=== PATIENT | male | born 1965 | race Caucasian/White ===

== ENCOUNTER 2020-09-27 12:37 | Inpatient (IN) | payer MEDICAID ==
[~2020-09-27] VITALS: Ht 170.2 cm; Wt 65.3 kg
[2020-09-27 13:18] LABS: BASOPHILS % (AUTO) 0.1 % (0-1); EOSINOPHILS % (AUTO) 0.1 % (0-6); HEMATOCRIT 37.3 % (42.0-52.0); HEMOGLOBIN 12.9 g/dl (14.0-17.9); LYMPHOCYTES # (AUTO) 0.5 X10'3 (1.1-4.8); LYMPHOCYTES % (AUTO) 4.3 % (21-51); MEAN CORPUSCULAR HEMOGLOBIN 30.1 PG (27.0-31.0); MEAN CORPUSCULAR HGB CONC 34.5 g/dL (33.0-36.5); MEAN CORPUSCULAR VOLUME 87.3 FL (78-98); MEAN PLATELET VOLUME 7.7 FL (7.4-10.4); MONOCYTES # (AUTO) 0.1 X10'3 (0-0.9); MONOCYTES % (AUTO) 0.7 % (2-12); NEUTROPHILS # (AUTO) 10.6 X10'3 (1.8-7.7); NEUTROPHILS % (AUTO) 94.8 % (42-75); PLATELET COUNT 262 X10'3 (140-440); RED BLOOD COUNT 4.28 X10'6 (4.70-6.10); RED CELL DISTRIBUTION WIDTH 14.6 % (11.5-14.5); WHITE BLOOD COUNT 11.1 X10'3 (4.5-11.0)
[2020-09-27 13:24] LABS: ALANINE AMINOTRANSFERASE 16 U/L (12-78); ALBUMIN/GLOBULIN RATIO 0.4 (1.1-1.5); ALKALINE PHOSPHATASE 107 IU/L (46-116); ANION GAP 11 (8-16); ASPARTATE AMINO TRANSFERASE 21 U/L (10-37); BILIRUBIN,TOTAL 1.5 MG/DL (0.1-1.0); BLOOD UREA NITROGEN 18 MG/DL (7-18); BUN/CREATININE RATIO 17.5 (5.4-32.0); CALCIUM 8.6 MG/DL (8.5-10.1); CHLORIDE 99 MMOL/L (99-107); CREATININE 1.03 MG/DL (0.60-1.10); GLUCOSE 85 MG/DL (70-104); POTASSIUM 3.5 MMOL/L (3.5-5.1); SODIUM 136 MMOL/L (135-145); TOTAL CARBON DIOXIDE 26.3 MMOL/L (24-32); TOTAL PROTEIN 6.6 G/DL (6.4-8.2); eGFR 74 ML/MIN
[2020-09-27] MEDS ORDERED: NO HOME MEDS (13:46)
--- NOTE | 2020-09-27 14:21 | NUR ---
SPOKE WITH DR. FARRAR REGARDING PT CASE, RECEIVED VO TO ORDER BLOOD CULTURES, CRP, D-DIMER AND RAPID COVID SWAB.
[2020-09-27] MEDS ORDERED: normal saline 1000ML IV soln IV ONE (14:25)
[2020-09-27] MEDS ORDERED: levoFLOXACIN-Levaquin 750MG/D5 150 ML IV ONE (14:25)
[2020-09-27] MEDS ORDERED: CefTRIAXone 2gm/D5W 50ml BAG 50 ML IV ONE (14:25)
[2020-09-27 14:31] LABS: TOTAL CELLS COUNTED 100
[2020-09-27 14:33] LABS: PLATELET ESTIMATE NORMAL
[2020-09-27 14:34] LABS: D-DIMER 2.05 MG/L FEU (0-0.50)
[2020-09-27 14:55] LABS: C-REACTIVE PROTEIN 31.15 MG/DL (0.0-0.5)
[2020-09-27] MEDS ORDERED: normal saline 1000ML IV soln IVB ONE (16:15)
[2020-09-27] MEDS ORDERED: albuterol 2.5 MG/3 ML nebule NEB ONE (16:40)
[2020-09-27] MEDS ORDERED: metoclopramide 5 mg/ml inj IV PRN (16:45)
[2020-09-27] MEDS ORDERED: magnesium 2GM in 50ml NS 50 ML IV PRN (16:45)
[2020-09-27] MEDS ORDERED: acetaminophen 325mg tablet PO PRN ×2 (16:45)
[2020-09-27] MEDS ORDERED: ipratropium/albuterol 3ml nebule NEB PRN (16:45)
[2020-09-27] MEDS ORDERED: magnesium hydroxide 30ml (MOM) UD suspension PO PRN (16:45)
[2020-09-27] MEDS ORDERED: ondansetron/PF 4mg/2ml inj IV PRN (16:45)
[2020-09-27] MEDS ORDERED: potassium Cl 20 mEq SR tablet PO PRN (16:45)
[2020-09-27] MEDS ORDERED: magnesium Cl slow-release 64mg tablet PO PRN (16:45)
[2020-09-27] MEDS ORDERED: magnesium 4gm in 100ml NS 100 ML IV PRN (16:45)
[2020-09-27] MEDS ORDERED: acetaminophen 650mg rectal suppository RC PRN (16:45)
[2020-09-27] MEDS ORDERED: potassium Cl 40MEQ/1/2NS 520ml 520 ML IV PRN ×2 (16:45)
[2020-09-27] MEDS ORDERED: mag hydrox/Alum hydrox/simeth 30ml oral suspension PO PRN (16:45)
[2020-09-27] MEDS ORDERED: bisacodyl 10mg suppository rectal RC PRN (16:45)
[2020-09-27] MEDS ORDERED: iohexol 350MG/ML 100ml bottle IV ONE (16:50)
--- NOTE | 2020-09-27 17:02 | NUR ---
BREE JUST FINISHED, PT TO CT WILL DO ROCEPHIN AND IVF WHEN HE GETS BACK
[2020-09-27 17:32] LABS: PARTIAL THROMBOPLASTIN TIME 32 SECONDS (22-32)
--- NOTE | 2020-09-27 17:37 | NUR ---
Patient in room ED 11. I have received report from krishan carpenter rn and had the opportunity to ask questions and assume patient care.
--- NOTE | 2020-09-27 18:00 | NUR ---
RECEIVED PT INTO 316,ORIENTED TO SURROUNDINGS,PT A,O X4 PLACED ON MONITER AND O2 @ 2L/N/C, DENIES PAIN,REPORT GIVEN TO JULIÁN SAMUEL, REQUEST SENT FOR DINNER TRAY
--- NOTE | 2020-09-27 18:16 | NUR ---
Patient in room MED 316. I have received report from MAC SAMUEL and had the opportunity to ask questions and assume patient care.
[2020-09-27] MEDS: azithromycin/NS 500mg/250ml 250 ML IV SCH (18:19)
[2020-09-27] MEDS: normal saline 1000ml 1,000 ML IV SCH (18:41)
[2020-09-27 19:00] VITALS: BP 106/66
[2020-09-27] MEDS: ipratropium/albuterol 3ml nebule NEB SCH ×2 (19:14→23:00)
[2020-09-27] MEDS ORDERED: methylPREDNISolone sod succ 125mg/2ml vial IV ONE (19:15)
[2020-09-27] MEDS ORDERED: nicotine 14mg patch - 24hr TD ONE (19:15)
[2020-09-27] MEDS: K and/or MAG REPLACEMENT MC SCH (20:00)
[2020-09-27] MEDS ORDERED: methylPREDNISolone sod succ 125mg/2ml vial IV SCH (20:00)
[2020-09-27] MEDS: vancomycin/NS 1 GM ADD-VANTAGE 250 ML IV SCH (20:27)
[2020-09-27] MEDS ORDERED: temazepam 15mg capsule PO PRN (21:00)
[2020-09-27 22:00] VITALS: BP 137/83
--- NOTE | 2020-09-28 00:51 | NUR ---
UNABLE TO OBTAIN BLOOD FOR LAB DRAW; WILL HAVE TROP DRAWN WITH AM LABS-LAST 3 TROPS NEGATIVE. RACHNA SAMUEL
[2020-09-28 02:00] VITALS: BP 138/96
[2020-09-28] MEDS: methylPREDNISolone sod succ 125mg/2ml vial IV SCH ×3 (02:03→14:00)
[2020-09-28] MEDS: normal saline 1000ml 1,000 ML IV SCH ×3 (02:45→22:45)
--- NOTE | 2020-09-28 03:29 | NUR ---
CRITICAL LAB RESULTED-CALLED TO MD DURAN-POSITIVE BLOOD CULTURES RESULTED FROM 09/27 1439 DRAW-GRAM POSITIVE COCCI IN PAIRS AND SHORT CHAINS PER LAB. RACHNA SAMUEL
--- NOTE | 2020-09-28 05:07 | NUR ---
Second set of blood cultures from 09/27 1550 right arm draw resulted in aerobic gram positive coccii in pairs and short chains per lab-called to MD Avila, no new orders per MD [place] RN
[2020-09-28] MEDS: vancomycin/NS 1 GM ADD-VANTAGE 250 ML IV SCH ×2 (05:35→18:04)
[2020-09-28 06:00] VITALS: BP 120/76
--- NOTE | 2020-09-28 06:19 | NUR ---
Problems reprioritized. Patient report given, questions answered & plan of care reviewed with MAC SAMUEL.
--- NOTE | 2020-09-28 06:20 | NUR ---
Patient in room MED 316. I have received report from JIMMIE GALLEGO and had the opportunity to ask questions and assume patient care.
[2020-09-28 06:27] LABS: ALANINE AMINOTRANSFERASE 15 U/L (12-78); ALBUMIN 1.7 G/DL (3.4-5.0); ALBUMIN/GLOBULIN RATIO 0.4 (1.1-1.5); ALKALINE PHOSPHATASE 96 IU/L (46-116); ANION GAP 10 (8-16); ASPARTATE AMINO TRANSFERASE 22 U/L (10-37); BILIRUBIN,TOTAL 1.1 MG/DL (0.1-1.0); BLOOD UREA NITROGEN 19 MG/DL (7-18); BUN/CREATININE RATIO 19.2 (5.4-32.0); CALCIUM 8.6 MG/DL (8.5-10.1); CHLORIDE 105 MMOL/L (99-107); CREATININE 0.99 MG/DL (0.60-1.10); GLUCOSE 133 MG/DL (70-104); POTASSIUM 3.7 MMOL/L (3.5-5.1); SODIUM 143 MMOL/L (135-145); TOTAL PROTEIN 6.2 G/DL (6.4-8.2); eGFR 78 ML/MIN
[2020-09-28 06:31] LABS: MAGNESIUM 2.2 MG/DL (1.5-2.4)
[2020-09-28 07:04] LABS: BASOPHILS % (AUTO) 0.1 % (0-1); EOSINOPHILS % (AUTO) 0 % (0-6); HEMATOCRIT 39.3 % (42.0-52.0); HEMOGLOBIN 13.3 g/dl (14.0-17.9); LYMPHOCYTES # (AUTO) 0.4 X10'3 (1.1-4.8); MEAN CORPUSCULAR HEMOGLOBIN 30.1 PG (27.0-31.0); MEAN CORPUSCULAR HGB CONC 33.9 g/dL (33.0-36.5); MEAN CORPUSCULAR VOLUME 88.7 FL (78-98); MEAN PLATELET VOLUME 8.2 FL (7.4-10.4); MONOCYTES # (AUTO) 0.2 X10'3 (0-0.9); NEUTROPHILS # (AUTO) 17.4 X10'3 (1.8-7.7); NEUTROPHILS % (AUTO) 96.9 % (42-75); PLATELET COUNT 252 X10'3 (140-440); RED BLOOD COUNT 4.44 X10'6 (4.70-6.10); RED CELL DISTRIBUTION WIDTH 14.9 % (11.5-14.5)
[2020-09-28] MEDS: ipratropium/albuterol 3ml nebule NEB SCH ×5 (07:32→23:00)
[2020-09-28] MEDS: CefTRIAXone/D5W-Rocephin 1gm 50 ML IV SCH (07:57)
[2020-09-28] MEDS: enoxaparin 40mg/0.4ml syringe SUBCUT SCH (07:57)
[2020-09-28] MEDS: nicotine 14mg patch - 24hr TD SCH (08:00)
[2020-09-28] MEDS: K and/or MAG REPLACEMENT MC SCH ×2 (08:21→20:00)
[2020-09-28] MEDS: azithromycin/NS 500mg/250ml 250 ML IV SCH (08:59)
[2020-09-28 11:00] VITALS: BP 106/65
[2020-09-28 15:00] VITALS: BP 123/73
[2020-09-28 18:00] VITALS: BP 124/74
--- NOTE | 2020-09-28 18:00 | NUR ---
Patient in room MED 316. I have received report from JIMMIE Olvera and had the opportunity to ask questions and assume patient care.
--- NOTE | 2020-09-28 18:15 | NUR ---
Problems reprioritized. Patient report given, questions answered & plan of care reviewed with vianey galo.
[2020-09-28] MEDS: lactobacillus rhamnosus 10,000 MMU CELLS/CAPSULE PO SCH (19:57)
[2020-09-28 22:00] VITALS: BP 115/78
[2020-09-29 02:00] VITALS: BP 120/93
[2020-09-29] MEDS ORDERED: VANCOMYCIN LEVEL IV ONE (05:30)
--- NOTE | 2020-09-29 06:25 | NUR ---
Patient in room MED 316. I have received report from vianey galo and had the opportunity to ask questions and assume patient care.
[2020-09-29 06:30] VITALS: BP 127/75
--- NOTE | 2020-09-29 06:32 | NUR ---
Problems reprioritized. Patient report given, questions answered & plan of care reviewed with JIMMIE Olvera.
[2020-09-29 06:44] LABS: BASOPHILS % (AUTO) 0.1 % (0-1); EOSINOPHILS % (AUTO) 0 % (0-6); HEMATOCRIT 33.8 % (42.0-52.0); HEMOGLOBIN 11.3 g/dl (14.0-17.9); LYMPHOCYTES # (AUTO) 0.7 X10'3 (1.1-4.8); LYMPHOCYTES % (AUTO) 2.9 % (21-51); MEAN CORPUSCULAR HEMOGLOBIN 29.5 PG (27.0-31.0); MEAN CORPUSCULAR HGB CONC 33.4 g/dL (33.0-36.5); MEAN CORPUSCULAR VOLUME 88.3 FL (78-98); MEAN PLATELET VOLUME 8.1 FL (7.4-10.4); MONOCYTES # (AUTO) 0.7 X10'3 (0-0.9); MONOCYTES % (AUTO) 2.7 % (2-12); NEUTROPHILS # (AUTO) 23.7 X10'3 (1.8-7.7); NEUTROPHILS % (AUTO) 94.3 % (42-75); PLATELET COUNT 297 X10'3 (140-440); RED BLOOD COUNT 3.83 X10'6 (4.70-6.10); RED CELL DISTRIBUTION WIDTH 15.4 % (11.5-14.5)
[2020-09-29 06:49] LABS: ALANINE AMINOTRANSFERASE 17 U/L (12-78); ALBUMIN 1.5 G/DL (3.4-5.0); ALBUMIN/GLOBULIN RATIO 0.4 (1.1-1.5); ALKALINE PHOSPHATASE 110 IU/L (46-116); ANION GAP 8 (8-16); ASPARTATE AMINO TRANSFERASE 20 U/L (10-37); BILIRUBIN,TOTAL 0.4 MG/DL (0.1-1.0); BLOOD UREA NITROGEN 27 MG/DL (7-18); BUN/CREATININE RATIO 31.8 (5.4-32.0); CALCIUM 8.7 MG/DL (8.5-10.1); CHLORIDE 107 MMOL/L (99-107); CREATININE 0.85 MG/DL (0.60-1.10); GLUCOSE 164 MG/DL (70-104); POTASSIUM 3.2 MMOL/L (3.5-5.1); SODIUM 141 MMOL/L (135-145); TOTAL PROTEIN 5.6 G/DL (6.4-8.2); eGFR > 90 ML/MIN
[2020-09-29 06:50] LABS: MAGNESIUM 1.8 MG/DL (1.5-2.4); VANCOMYCIN,TROUGH 9.9 UG/ML (6.0-14.0)
[2020-09-29 06:55] LABS: WHITE BLOOD COUNT 25.1 X10'3 (4.5-11.0)
[2020-09-29] MEDS: ipratropium/albuterol 3ml nebule NEB SCH ×5 (07:10→23:00)
[2020-09-29] MEDS: vancomycin/NS 1 GM ADD-VANTAGE 250 ML IV SCH (07:24)
--- NOTE | 2020-09-29 07:30 | NUR ---
Dr. lucia notified of critical; wbc=25.1
[2020-09-29 07:46] LABS: PLATELET ESTIMATE NORMAL; TOTAL CELLS COUNTED 100
[2020-09-29] MEDS: azithromycin/NS 500mg/250ml 250 ML IV SCH (08:00)
[2020-09-29] MEDS: CefTRIAXone/D5W-Rocephin 1gm 50 ML IV SCH (08:00)
[2020-09-29] MEDS: K and/or MAG REPLACEMENT MC SCH ×2 (08:37→20:00)
[2020-09-29] MEDS: lactobacillus rhamnosus 10,000 MMU CELLS/CAPSULE PO SCH ×2 (08:38→19:57)
[2020-09-29] MEDS: potassium Cl 20 mEq SR tablet PO PRN (08:38)
[2020-09-29] MEDS: enoxaparin 40mg/0.4ml syringe SUBCUT SCH (08:39)
[2020-09-29] MEDS: nicotine 14mg patch - 24hr TD SCH (08:39)
[2020-09-29] MEDS: normal saline 1000ml 1,000 ML IV SCH ×2 (08:51→19:57)
[2020-09-29 11:00] VITALS: BP 135/79
[2020-09-29 14:00] VITALS: BP 123/84
[2020-09-29 18:00] VITALS: BP 139/81
--- NOTE | 2020-09-29 18:00 | NUR ---
Patient in room MED 316. I have received report from JIMMIE Olvera and had the opportunity to ask questions and assume patient care.
--- NOTE | 2020-09-29 18:20 | NUR ---
Problems reprioritized. Patient report given, questions answered & plan of care reviewed with
--- NOTE | 2020-09-29 19:51 | NUR ---
PATIENT DECLINES SVN TX, DENIES SOB - WANTS TO CONTINUE SLEEPING AT THIS TIME
[2020-09-29] MEDS: VANCOmycin 1250MG/NS 250ml Bag 250 ML IV SCH (19:56)
[2020-09-29 22:00] VITALS: BP 144/86
[2020-09-30 02:00] VITALS: BP 154/87
[2020-09-30] MEDS: normal saline 1000ml 1,000 ML IV SCH ×3 (04:45→23:48)
[2020-09-30 06:03] LABS: BASOPHILS % (AUTO) 0.2 % (0-1); EOSINOPHILS % (AUTO) 0 % (0-6); LYMPHOCYTES # (AUTO) 1.7 X10'3 (1.1-4.8); LYMPHOCYTES % (AUTO) 10.7 % (21-51); MEAN CORPUSCULAR HEMOGLOBIN 29.6 PG (27.0-31.0); MEAN CORPUSCULAR HGB CONC 33.3 g/dL (33.0-36.5); MEAN CORPUSCULAR VOLUME 88.8 FL (78-98); MEAN PLATELET VOLUME 7.8 FL (7.4-10.4); MONOCYTES # (AUTO) 0.7 X10'3 (0-0.9); MONOCYTES % (AUTO) 4.4 % (2-12); NEUTROPHILS # (AUTO) 13.8 X10'3 (1.8-7.7); NEUTROPHILS % (AUTO) 84.7 % (42-75); PLATELET COUNT 369 X10'3 (140-440); RED BLOOD COUNT 4.05 X10'6 (4.70-6.10); RED CELL DISTRIBUTION WIDTH 15.2 % (11.5-14.5); WHITE BLOOD COUNT 16.3 X10'3 (4.5-11.0)
[2020-09-30 06:18] LABS: ALANINE AMINOTRANSFERASE 72 U/L (12-78); ALBUMIN 1.7 G/DL (3.4-5.0); ALBUMIN/GLOBULIN RATIO 0.4 (1.1-1.5); ALKALINE PHOSPHATASE 141 IU/L (46-116); ANION GAP 8 (8-16); ASPARTATE AMINO TRANSFERASE 79 U/L (10-37); BILIRUBIN,TOTAL 0.3 MG/DL (0.1-1.0); BLOOD UREA NITROGEN 26 MG/DL (7-18); BUN/CREATININE RATIO 32.9 (5.4-32.0); CALCIUM 8.1 MG/DL (8.5-10.1); CHLORIDE 106 MMOL/L (99-107); CREATININE 0.79 MG/DL (0.60-1.10); GLUCOSE 85 MG/DL (70-104); MAGNESIUM 1.7 MG/DL (1.5-2.4); POTASSIUM 3.2 MMOL/L (3.5-5.1); SODIUM 145 MMOL/L (135-145); TOTAL CARBON DIOXIDE 30.8 MMOL/L (24-32); TOTAL PROTEIN 5.6 G/DL (6.4-8.2); eGFR > 90 ML/MIN
[2020-09-30 07:00] VITALS: BP 143/76
[2020-09-30] MEDS: ipratropium/albuterol 3ml nebule NEB SCH ×5 (07:07→23:00)
[2020-09-30] MEDS: nicotine 14mg patch - 24hr TD SCH (07:54)
[2020-09-30] MEDS: lactobacillus rhamnosus 10,000 MMU CELLS/CAPSULE PO SCH ×2 (07:55→20:15)
[2020-09-30] MEDS: enoxaparin 40mg/0.4ml syringe SUBCUT SCH (07:55)
[2020-09-30] MEDS: VANCOmycin 1250MG/NS 250ml Bag 250 ML IV SCH (07:57)
[2020-09-30] MEDS: CefTRIAXone/D5W-Rocephin 1gm 50 ML IV SCH (08:00)
[2020-09-30] MEDS: K and/or MAG REPLACEMENT MC SCH ×2 (08:00→20:11)
[2020-09-30] MEDS: potassium Cl 20 mEq SR tablet PO PRN (11:40)
[2020-09-30 12:00] VITALS: BP 140/75
[2020-09-30] MEDS: azithromycin/NS 500mg/250ml 250 ML IV SCH (17:33)
[2020-09-30 17:53] VITALS: BP 137/92
[2020-09-30 18:00] VITALS: BP 142/88
--- NOTE | 2020-09-30 18:00 | NUR ---
Patient in room MED 316. I have received report from sheldon winters and had the opportunity to ask questions and assume patient care.
[2020-09-30 22:00] VITALS: BP 135/86
[2020-10-01 02:00] VITALS: BP 139/90
--- NOTE | 2020-10-01 06:16 | NUR ---
Problems reprioritized. Patient report given, questions answered & plan of care reviewed with sheldon winters.
[2020-10-01] MEDS ORDERED: VANCOMYCIN LEVEL IV ONE (06:30)
[2020-10-01] MEDS: lactobacillus rhamnosus 10,000 MMU CELLS/CAPSULE PO SCH (07:45)
[2020-10-01] MEDS: nicotine 14mg patch - 24hr TD SCH (07:45)
[2020-10-01] MEDS: enoxaparin 40mg/0.4ml syringe SUBCUT SCH (07:45)
[2020-10-01] MEDS: CefTRIAXone/D5W-Rocephin 1gm 50 ML IV SCH (07:46)
[2020-10-01] MEDS: azithromycin/NS 500mg/250ml 250 ML IV SCH (07:46)
[2020-10-01] MEDS: K and/or MAG REPLACEMENT MC SCH (08:00)
[2020-10-01 08:05] LABS: BASOPHILS % (AUTO) 0.1 % (0-1); EOSINOPHILS # (AUTO) 0.1 X10'3 (0-0.9); EOSINOPHILS % (AUTO) 0.6 % (0-6); HEMATOCRIT 34.8 % (42.0-52.0); HEMOGLOBIN 11.8 g/dl (14.0-17.9); LYMPHOCYTES # (AUTO) 1.9 X10'3 (1.1-4.8); LYMPHOCYTES % (AUTO) 15.2 % (21-51); MEAN CORPUSCULAR HEMOGLOBIN 29.6 PG (27.0-31.0); MEAN CORPUSCULAR HGB CONC 33.7 g/dL (33.0-36.5); MEAN CORPUSCULAR VOLUME 87.6 FL (78-98); MEAN PLATELET VOLUME 7.7 FL (7.4-10.4); MONOCYTES % (AUTO) 7.8 % (2-12); NEUTROPHILS # (AUTO) 9.7 X10'3 (1.8-7.7); NEUTROPHILS % (AUTO) 76.3 % (42-75); PLATELET COUNT 388 X10'3 (140-440); RED BLOOD COUNT 3.98 X10'6 (4.70-6.10); RED CELL DISTRIBUTION WIDTH 15.4 % (11.5-14.5); WHITE BLOOD COUNT 12.7 X10'3 (4.5-11.0)
[2020-10-01] MEDS: ipratropium/albuterol 3ml nebule NEB SCH ×2 (08:12→11:39)
[2020-10-01 08:30] LABS: ALANINE AMINOTRANSFERASE 50 U/L (12-78); ALBUMIN 1.6 G/DL (3.4-5.0); ALBUMIN/GLOBULIN RATIO 0.4 (1.1-1.5); ALKALINE PHOSPHATASE 102 IU/L (46-116); ANION GAP 6 (8-16); ASPARTATE AMINO TRANSFERASE 31 U/L (10-37); BILIRUBIN,TOTAL 0.8 MG/DL (0.1-1.0); BLOOD UREA NITROGEN 15 MG/DL (7-18); BUN/CREATININE RATIO 23.4 (5.4-32.0); CHLORIDE 104 MMOL/L (99-107); CREATININE 0.64 MG/DL (0.60-1.10); GLUCOSE 69 MG/DL (70-104); MAGNESIUM 1.6 MG/DL (1.5-2.4); SODIUM 143 MMOL/L (135-145); TOTAL CARBON DIOXIDE 33.5 MMOL/L (24-32); TOTAL PROTEIN 5.4 G/DL (6.4-8.2); eGFR > 90 ML/MIN
[2020-10-01 08:34] LABS: CALCIUM 7.5 MG/DL (8.5-10.1)
--- NOTE | 2020-10-01 08:35 | NUR ---
Paged Dr. Buckner for primary RN regarding critical result of potassium 3.0 and asked for electrolyte replacement protocol. PAGER ID: [phone] MESSAGE: [phone]. Jong Mcdonald. Critical result of potassium 3.0. May I put in electrolyte replacement protocol? Thank you. Robyn SAMUEL x [phone]
[2020-10-01] MEDS ORDERED: magnesium 4gm in 100ml NS 100 ML IV PRN (08:40)
[2020-10-01] MEDS ORDERED: potassium Cl 40MEQ/1/2NS 520ml 520 ML IV PRN (08:40)
[2020-10-01] MEDS ORDERED: magnesium Cl slow-release 64mg tablet PO PRN (08:40)
[2020-10-01] MEDS ORDERED: magnesium 2GM in 50ml NS 50 ML IV PRN (08:40)
[2020-10-01] MEDS ORDERED: potassium Cl 20 mEq SR tablet PO PRN ×2 (08:40)
[2020-10-01] MEDS: normal saline 1000ml 1,000 ML IV SCH (10:41)
[2020-10-01 11:10] VITALS: BP 111/82
[2020-10-01 12:29] VITALS: BP 111/70
[2020-10-01] MEDS ORDERED: LEVO500T89 PO (13:17)
[2020-10-01] MEDS ORDERED: NICO-631 TD (13:17)
--- NOTE | 2020-10-01 13:51 | NUR ---
Initial: Pt admit DX community-acquired PNA, sepsis, and acute respiratory failure w/ hypoxemia per MD note. PO improving 100% avg regular diet meeting needs. LBM 09/30. Receiving electrolyte replacements per protocol. Will continue to monitor. Rec: 1. continue regular diet 2. routine bowel care 3. weekly wts Addendum: 10/01/20 at [address] Amended: Links added.
[2020-10-01] MEDS ORDERED: K and/or MAG REPLACEMENT MC SCH (20:00)
--- NOTE | 2020-10-02 16:12 | NUR ---
CASE MANAGEMENT DISCHARGE FOLLOW UP: T/c to pt, no answer, left message requesting callback.
== END 2020-10-01 14:25 | disposition home or self-care (01) | DRG 720 ==
LOC: ER 12:37 → ED HOLD 16:41 → EDBEDREQ 17:55 → MED 3N 18:08
PROVIDERS: ADMIT Family Medicine; ATTEND Family Medicine
PROC: B32T1ZZ Computerized Tomography (CT Scan) of Left Pulmonary Artery using Low Osmolar Contrast (ICD-10-PCS; principal; 2020-09-27)
PROC: B32S1ZZ Computerized Tomography (CT Scan) of Right Pulmonary Artery using Low Osmolar Contrast (ICD-10-PCS; 2020-09-27)
DX: A40.3 Sepsis due to Streptococcus pneumoniae (principal); J96.01 Acute respiratory failure with hypoxia; R65.20 Severe sepsis without septic shock; J18.9 Pneumonia, unspecified organism; F15.90 Other stimulant use, unspecified, uncomplicated; F17.210 Nicotine dependence, cigarettes, uncomplicated; J43.9 Emphysema, unspecified; Z20.822 Contact with and (suspected) exposure to COVID-19
CPT/HCPCS: 36415; 71045; 71275; 80053; 80202; 83605; 83735; 83880; 84145; 84484; 85007; 85025; 85379; 85610; 85730; 86140; 87040; 87077; 87081; 87186; 87502; 87503; 87635; 93005; 94640; 94760; 96365; 99285; C9803; G0378; J0456; J0696; J1650; J1956; J2930; J3370; J3475; J7030; Q9967

== ENCOUNTER 2021-10-17 10:07 | Emergency (ER) | payer MEDICAID ==
[~2021-10-17] VITALS: Ht 170.2 cm; Wt 70.5 kg
[~2021-10-17 10:07] MED LIST: NICO-631 TD
[2021-10-17 10:10] VITALS: BP 146/87
== END 2021-10-17 16:50 | disposition left against medical advice (07) ==
LOC: ER 10:08
DX: R06.02 Shortness of breath (principal); Z53.21 Procedure and treatment not carried out due to patient leaving prior to being seen by health care provider

== ENCOUNTER 2022-05-31 15:20 | Emergency (ER) | payer MEDICAID ==
[~2022-05-31] VITALS: Ht 170.2 cm; Wt 68.0 kg
--- NOTE | 2022-05-31 15:23 | NUR ---
112/80. 108 HR, 92%. c/o productive cough with green sputum x 1 week. +SOB due to COPD. No other complaints.
[2022-05-31 16:33] LABS: BASOPHILS # (AUTO) 0.2 X10'3 (0-0.2); BASOPHILS % (AUTO) 1.2 % (0-1); EOSINOPHILS % (AUTO) 0 % (0-6); HEMATOCRIT 48.6 % (42.0-52.0); HEMOGLOBIN 16.2 g/dl (14.0-17.9); LYMPHOCYTES # (AUTO) 1.6 X10'3 (1.1-4.8); LYMPHOCYTES % (AUTO) 11.3 % (21-51); MEAN CORPUSCULAR HEMOGLOBIN 29.7 PG (27.0-31.0); MEAN CORPUSCULAR HGB CONC 33.2 g/dL (33.0-36.5); MEAN CORPUSCULAR VOLUME 89.4 FL (78-98); MEAN PLATELET VOLUME 6.9 FL (7.4-10.4); MONOCYTES # (AUTO) 1.7 X10'3 (0-0.9); MONOCYTES % (AUTO) 12.2 % (2-12); NEUTROPHILS # (AUTO) 10.5 X10'3 (1.8-7.7); NEUTROPHILS % (AUTO) 75.3 % (42-75); PLATELET COUNT 491 X10'3 (140-440); RED BLOOD COUNT 5.44 X10'6 (4.70-6.10); RED CELL DISTRIBUTION WIDTH 12.8 % (11.5-14.5)
[2022-05-31 16:56] LABS: ALANINE AMINOTRANSFERASE 23 U/L (12-78); ALBUMIN 3.7 G/DL (3.4-5.0); ALBUMIN/GLOBULIN RATIO 0.8 (1.1-1.5); ALKALINE PHOSPHATASE 87 IU/L (46-116); ANION GAP 10 (8-16); ASPARTATE AMINO TRANSFERASE 21 U/L (10-37); BILIRUBIN,TOTAL 0.6 MG/DL (0.1-1.0); BLOOD UREA NITROGEN 14 MG/DL (7-18); BUN/CREATININE RATIO 16.1 (5.4-32.0); CALCIUM 9.3 MG/DL (8.5-10.1); CHLORIDE 96 MMOL/L (99-107); CREATININE 0.87 MG/DL (0.60-1.10); GLUCOSE 110 MG/DL (70-104); POTASSIUM 4.9 MMOL/L (3.5-5.1); SODIUM 136 MMOL/L (135-145); TOTAL CARBON DIOXIDE 29.9 MMOL/L (24-32); TOTAL PROTEIN 8.3 G/DL (6.4-8.2); eGFR 90 ML/MIN
[2022-05-31 20:06] VITALS: BP 121/80
[2022-05-31] MEDS ORDERED: predniSONE 20 mg tablet PO ONE (20:30)
[2022-05-31] MEDS ORDERED: albuterol 2.5 MG/3 ML nebule NEB ONE (20:30)
[2022-05-31] MEDS ORDERED: azithromycin 250mg tablet PO ONE (20:30)
[2022-05-31] MEDS ORDERED: ipratropium/albuterol 3ml nebule NEB ONE (20:33)
[2022-05-31] MEDS ORDERED: AZIT250T PO (20:58)
[2022-05-31] MEDS ORDERED: ALBU8HFA PO (20:58)
[2022-05-31] MEDS ORDERED: ALB0.5UD IH (20:58)
[2022-05-31] MEDS ORDERED: PRED20TA PO (20:58)
== END 2022-05-31 21:17 | disposition home or self-care (01) ==
LOC: ER 15:20
DX: J44.1 Chronic obstructive pulmonary disease with (acute) exacerbation (principal)
CPT/HCPCS: 36415; 71046; 80053; 83605; 83880; 85025; 87040; 94640; 99284; J7512

== ENCOUNTER 2022-09-20 11:13 | Emergency (ER) | payer MEDICAID ==
[~2022-09-20] VITALS: Ht 167.6 cm; Wt 61.0 kg
[~2022-09-20 11:13] MED LIST changes: +AZIT250T PO
[2022-09-20 11:38] VITALS: BP 135/87
--- NOTE | 2022-09-20 12:59 | NUR ---
POSION CONTROL CONTACTED - THIS CAN CAUSE AN ABRASION MECHANICALLY NOT CHEMICALLY - WORK THE AREA WITH WARM COMPRESS OR OPTHALMIC OINTMENT. IF NOT ABLE TO OPEN IN ER SEND HOME WITH EYE PATCH AND F\U WITH EYE DOCTOR. REGARDING ACETONE IN THE EYE THERE IS NO MAJOR CONCERN OTHER THAN IRRITATION.
[2022-09-20] MEDS ORDERED: erythromycin ophthalmic ointment 1gm tube EACHEYE ONE (13:20)
[2022-09-20] MEDS ORDERED: proparacaine 0.5% ophthalmic drops 15ml EACHEYE ONE (14:00)
[2022-09-20] MEDS ORDERED: NEO/5DRO7 LEFTEYE (14:29)
--- NOTE | 2022-09-20 14:59 | NUR ---
4x4 TAPED AND PLACED ON R EYE
== END 2022-09-20 14:52 | disposition home or self-care (01) ==
LOC: ER 11:14
DX: T15.91XA Foreign body on external eye, part unspecified, right eye, initial encounter (principal); J44.9 Chronic obstructive pulmonary disease, unspecified; Z98.890 Other specified postprocedural states; X58.XXXA Exposure to other specified factors, initial encounter; Y93.89 Activity, other specified; Y92.89 Other specified places as the place of occurrence of the external cause; Y99.8 Other external cause status
CPT/HCPCS: 99283; A6402

== ENCOUNTER 2023-03-18 10:41 | Emergency (ER) | payer MEDICAID ==
[~2023-03-18] VITALS: Ht 167.6 cm; Wt 60.0 kg
[~2023-03-18 10:41] MED LIST changes: +NEO/5DRO7 LEFTEYE
[2023-03-18 12:09] LABS: BILIRUBIN,URINE NEGATIVE (Neg); CLARITY,URINE CLEAR (Clear); COLOR,URINE STRAW (Yellow); GLUCOSE, URINE NEGATIVE (Neg); KETONES,URINE NEGATIVE (Neg); LEUKOCYTE ESTERASE ,URINE NEGATIVE (Neg); NITRITES, URINE NEGATIVE (Neg); OCCULT BLOOD,URINE TRACE-INTACT (Neg); PROTEIN,URINE NEGATIVE (Neg); UROBILINOGEN,URINE 0.2 E.U/dL (0.2-1.0)
[2023-03-18 12:12] LABS: UA COLLECTION TYPE NON-SPECIFIED
[2023-03-18 12:16] LABS: BACTERIA,URINE FEW /HPF (Neg); RBC,URINE 0-2 /HPF (0-2); SQUAMOUS EPITHELIAL CELL,UR FEW /LPF (FEW); WBC,URINE 0-4 /HPF (0-4)
[2023-03-18 13:01] VITALS: BP 153/101; PULSE 70; RESP 18; TEMP 97.6; O2SAT 100
[2023-03-18 13:30] LABS: BASOPHILS % (AUTO) 0.6 % (0-1); EOSINOPHILS # (AUTO) 0.2 X10'3 (0-0.9); EOSINOPHILS % (AUTO) 2.9 % (0-6); HEMATOCRIT 46.1 % (42.0-52.0); HEMOGLOBIN 15.5 g/dl (14.0-17.9); LYMPHOCYTES # (AUTO) 2.9 X10'3 (1.1-4.8); MEAN CORPUSCULAR HEMOGLOBIN 30.6 PG (27.0-31.0); MEAN CORPUSCULAR HGB CONC 33.6 g/dL (33.0-36.5); MEAN CORPUSCULAR VOLUME 91.1 FL (78-98); MEAN PLATELET VOLUME 7.1 FL (7.4-10.4); MONOCYTES # (AUTO) 0.5 X10'3 (0-0.9); MONOCYTES % (AUTO) 7.3 % (2-12); NEUTROPHILS # (AUTO) 3.5 X10'3 (1.8-7.7); NEUTROPHILS % (AUTO) 49.2 % (42-75); PLATELET COUNT 334 X10'3 (140-440); RED BLOOD COUNT 5.06 X10'6 (4.70-6.10); RED CELL DISTRIBUTION WIDTH 13.4 % (11.5-14.5); WHITE BLOOD COUNT 7.1 X10'3 (4.5-11.0)
[2023-03-18 13:34] LABS: ALANINE AMINOTRANSFERASE 32 U/L (12-78); ALBUMIN 3.8 G/DL (3.4-5.0); ALBUMIN/GLOBULIN RATIO 1.2 (1.1-1.5); ALKALINE PHOSPHATASE 80 IU/L (46-116); ANION GAP 4 (8-16); ASPARTATE AMINO TRANSFERASE 17 U/L (10-37); BILIRUBIN,TOTAL 0.3 MG/DL (0.1-1.0); BLOOD UREA NITROGEN 10 MG/DL (7-18); CALCIUM 8.7 MG/DL (8.5-10.1); CHLORIDE 104 MMOL/L (99-107); CREATININE 0.83 MG/DL (0.60-1.10); GLUCOSE 88 MG/DL (70-104); POTASSIUM 3.5 MMOL/L (3.5-5.1); SODIUM 140 MMOL/L (135-145); TOTAL CARBON DIOXIDE 31.7 MMOL/L (24-32); TOTAL PROTEIN 7.1 G/DL (6.4-8.2); eCRCL 80 ML/MIN; eGFR > 90 ML/MIN
--- NOTE | 2023-03-18 15:14 | NUR ---
PT WAS A/O X4 IN NAD WITH VISITOR AT . FOLLOWING MD EXAM, AN US WAS ORDERED. PT LEFT W/O INSTRUCTION AFTER TALKING TO MD.
== END 2023-03-18 15:15 | disposition home or self-care (01) ==
LOC: ER 10:42
DX: N43.3 Hydrocele, unspecified (principal); F12.90 Cannabis use, unspecified, uncomplicated; F15.90 Other stimulant use, unspecified, uncomplicated; J44.9 Chronic obstructive pulmonary disease, unspecified; Z86.69 Personal history of other diseases of the nervous system and sense organs; Z79.899 Other long term (current) drug therapy
CPT/HCPCS: 36415; 76870; 80053; 81001; 85025; 93976; 99284

== ENCOUNTER 2023-12-24 22:09 | Emergency (ER) | payer MEDICAID ==
[~2023-12-24] VITALS: Ht 167.6 cm; Wt 63.0 kg
[2023-12-24 22:21] VITALS: TEMP 99.4
[2023-12-24] MEDS: normal saline 1000ML IV soln IVB ONE (22:50)
[2023-12-24 22:51] LABS: BASOPHILS % (AUTO) 0.5 % (0-1); EOSINOPHILS # (AUTO) 0.1 X10'3 (0-0.9); EOSINOPHILS % (AUTO) 1.2 % (0-6); HEMATOCRIT 40.7 % (42.0-52.0); HEMOGLOBIN 13.8 g/dl (14.0-17.9); LYMPHOCYTES # (AUTO) 1.5 X10'3 (1.1-4.8); MEAN CORPUSCULAR HEMOGLOBIN 30.6 PG (27.0-31.0); MEAN CORPUSCULAR HGB CONC 33.9 g/dL (33.0-36.5); MEAN CORPUSCULAR VOLUME 90.2 FL (78-98); MEAN PLATELET VOLUME 7.2 FL (7.4-10.4); MONOCYTES # (AUTO) 0.5 X10'3 (0-0.9); MONOCYTES % (AUTO) 6.4 % (2-12); NEUTROPHILS # (AUTO) 6.4 X10'3 (1.8-7.7); NEUTROPHILS % (AUTO) 74.9 % (42-75); PLATELET COUNT 257 X10'3 (140-440); RED BLOOD COUNT 4.51 X10'6 (4.70-6.10); RED CELL DISTRIBUTION WIDTH 13.5 % (11.5-14.5); WHITE BLOOD COUNT 8.6 X10'3 (4.5-11.0)
[2023-12-24 23:03] LABS: ALBUMIN 3.7 G/DL (3.4-5.0); ANION GAP 10 (8-16); BLOOD UREA NITROGEN 18 MG/DL (7-18); BUN/CREATININE RATIO 14.3 (10.0-20.0); CALCIUM 8.5 MG/DL (8.5-10.1); CHLORIDE 105 MMOL/L (99-107); CREATININE 1.26 MG/DL (0.60-1.10); GLUCOSE 109 MG/DL (70-104); MAGNESIUM 1.9 MG/DL (1.5-2.4); POTASSIUM 3.3 MMOL/L (3.5-5.1); SODIUM 140 MMOL/L (135-145); TOTAL CARBON DIOXIDE 24.7 MMOL/L (24-32); eCRCL 56 ML/MIN; eGFR 58 ML/MIN
[2023-12-24 23:06] LABS: ETHANOL < 10 MG/DL (<10)
[2023-12-24] MEDS: methylPREDNISolone sod succ 125mg/2ml vial IV ONE (23:07)
[2023-12-24] MEDS: ipratropium/albuterol 3ml nebule NEB ONE (23:19)
[2023-12-24 23:20] VITALS: PULSE 103; RESP 25; O2SAT 98
[2023-12-24] MEDS ORDERED: DEC4T PO (23:21)
[2023-12-24] MEDS: quetiapine 100mg tablet PO SCH (23:25)
[2023-12-24 23:30] VITALS: PULSE 103; RESP 20; O2SAT 97
[2023-12-24 23:36] VITALS: BP 122/79; PULSE 102; RESP 18; O2SAT 92
[2023-12-24] MEDS: diphenhydrAMINE 25mg capsule PO ONE (23:47)
[2023-12-24] MEDS: ziprasidone IM 20mg inj **IM only IM ONE (23:48)
== END 2023-12-25 00:11 | disposition home or self-care (01) ==
LOC: ER 22:10
DX: F15.10 Other stimulant abuse, uncomplicated (principal); J44.1 Chronic obstructive pulmonary disease with (acute) exacerbation; F12.90 Cannabis use, unspecified, uncomplicated; Z79.899 Other long term (current) drug therapy; Z79.2 Long term (current) use of antibiotics; Z98.890 Other specified postprocedural states
CPT/HCPCS: 36415; 71045; 80048; 80320; 83735; 85025; 93005; 94640; 96361; 96374; 99285; J2919; J7030; 94760; Q0163

== ENCOUNTER 2024-03-14 11:16 | Emergency (ER) | payer MEDICAID ==
[~2024-03-14] VITALS: Ht 167.6 cm; Wt 63.6 kg
[~2024-03-14 11:16] MED LIST changes: +DEC4T PO
[2024-03-14 11:19] VITALS: TEMP 97.3
[2024-03-14 11:56] LABS: BASOPHILS % (AUTO) 0.4 % (0-1); EOSINOPHILS # (AUTO) 0.2 X10'3 (0-0.9); EOSINOPHILS % (AUTO) 3.1 % (0-6); HEMATOCRIT 47.2 % (42.0-52.0); HEMOGLOBIN 15.9 g/dl (14.0-17.9); LYMPHOCYTES # (AUTO) 1.9 X10'3 (1.1-4.8); MEAN CORPUSCULAR HEMOGLOBIN 31.6 PG (27.0-31.0); MEAN CORPUSCULAR HGB CONC 33.7 g/dL (33.0-36.5); MEAN CORPUSCULAR VOLUME 93.9 FL (78-98); MONOCYTES # (AUTO) 0.5 X10'3 (0-0.9); MONOCYTES % (AUTO) 6.7 % (2-12); NEUTROPHILS % (AUTO) 64.8 % (42-75); PLATELET COUNT 292 X10'3 (140-440); RED BLOOD COUNT 5.03 X10'6 (4.70-6.10); RED CELL DISTRIBUTION WIDTH 13.3 % (11.5-14.5); WHITE BLOOD COUNT 7.7 X10'3 (4.5-11.0)
[2024-03-14 12:06] LABS: ALANINE AMINOTRANSFERASE 22 U/L (12-78); ALBUMIN 3.5 G/DL (3.4-5.0); ALKALINE PHOSPHATASE 73 IU/L (46-116); ANION GAP 5 (8-16); ASPARTATE AMINO TRANSFERASE 18 U/L (10-37); BILIRUBIN,TOTAL 0.2 MG/DL (0.1-1.0); BLOOD UREA NITROGEN 8 MG/DL (7-18); BUN/CREATININE RATIO 8.7 (10.0-20.0); CALCIUM 8.4 MG/DL (8.5-10.1); CHLORIDE 101 MMOL/L (99-107); CREATININE 0.92 MG/DL (0.60-1.10); POTASSIUM 4.2 MMOL/L (3.5-5.1); SODIUM 140 MMOL/L (135-145); TOTAL CARBON DIOXIDE 34.3 MMOL/L (24-32); eCRCL 76 ML/MIN; eGFR 84 ML/MIN
[2024-03-14] MEDS ORDERED: ALBU2.5V10 NEB (12:12)
[2024-03-14 12:13] LABS: PRO BRAIN NATRIURETIC PEPTIDE 155 PG/ML (0-125)
[2024-03-14 12:15] LABS: GLUCOSE 137 MG/DL (70-104)
[2024-03-14 13:39] VITALS: BP 116/70
[2024-03-14] MEDS: albuterol 2.5 MG/3 ML nebule CONTNEB PRN (15:06)
[2024-03-14 15:08] VITALS: PULSE 81; RESP 22; O2SAT 95
[2024-03-14] MEDS: CefTRIAXone/D5W-Rocephin 1gm 50 ML IV ONE (15:14)
[2024-03-14] MEDS: methylPREDNISolone sod succ 125mg/2ml vial IV ONE (15:15)
[2024-03-14] MEDS: azithromycin/NS 500mg/250ml 250 ML IV ONE (15:47)
[2024-03-14 16:18] VITALS: PULSE 88; RESP 18; O2SAT 95
[2024-03-14] MEDS: albuterol 2.5 MG/3 ML nebule NEB ONE (16:57)
[2024-03-14 16:58] VITALS: PULSE 84; RESP 13
[2024-03-14] MEDS ORDERED: PRED20TA PO (17:09)
[2024-03-14] MEDS ORDERED: AZIT-164 PO (17:09)
[2024-03-14 17:16] VITALS: PULSE 79; RESP 15; O2SAT 96
== END 2024-03-14 17:23 | disposition home or self-care (01) ==
LOC: ER 11:17
DX: J44.1 Chronic obstructive pulmonary disease with (acute) exacerbation (principal); J40 Bronchitis, not specified as acute or chronic; Z99.81 Dependence on supplemental oxygen; F17.200 Nicotine dependence, unspecified, uncomplicated; F12.90 Cannabis use, unspecified, uncomplicated; F15.90 Other stimulant use, unspecified, uncomplicated; Z79.2 Long term (current) use of antibiotics; Z79.899 Other long term (current) drug therapy; Z98.890 Other specified postprocedural states
CPT/HCPCS: 36415; 71045; 80053; 83605; 83880; 84145; 84484; 85025; 87040; 93005; 94640; 96365; 96367; 96375; 99285; J0456; J0696; J2919; 94760; A7015